=== PATIENT | male | born 1980 | race Caucasian/White ===

== ENCOUNTER 2021-04-04 11:21 | Observation (INO) | payer OTHER ==
[2021-04-04] MEDS ORDERED: Cyclobenzaprine 10 MG Tab PO ONE (12:59)
[2021-04-04] MEDS ORDERED: Ketorolac 30 MG/ML SDV IM ONE (12:59)
[2021-04-04 13:55] LABS: BLOOD UREA NITROGEN,BUN 12 mg/dL (7.0-18.0); CARBON DIOXIDE,CO2 25.1 mmol/L (21.0-32.0); CHLORIDE,CL 102 mmol/L (98-107); GLUCOSE RANDOM 102 mg/dL (74-106); POTASSIUM,K 3.7 mmol/L (3.5-5.1); SODIUM,NA 139 mmol/L (136-148)
[2021-04-04] MEDS ORDERED: Lactated Ringers 1,000 ML IV STA (14:29)
[2021-04-04] MEDS: VANCOmycin 1.25 GM/250 ML 1.25 GM in Premix Bag 1 BAG IV SCH (14:56)
[2021-04-04] MEDS ORDERED: cefTRIAXone 2 GM in Premix Bag 1 BAG IV ONE (16:08)
[2021-04-04] MEDS ORDERED: Ondansetron 4 MG/2 ML SDV IVPUSH PRN (17:02)
[2021-04-04] MEDS ORDERED: Cyclobenzaprine 10 MG Tab PO PRN (17:02)
[2021-04-04] MEDS ORDERED: Ondansetron 4 MG Tab.DIS PO PRN (17:02)
[2021-04-04] MEDS ORDERED: Ketorolac 30 MG/ML SDV IM PRN (17:02)
[2021-04-04] MEDS ORDERED: Acetaminophen 325 MG Tab PO PRN (17:02)
[2021-04-04] MEDS ORDERED: Enoxaparin 40 MG/0.4 ML Syringe SUBCUT SCH (17:15)
[2021-04-04] MEDS ORDERED: Lactated Ringers 1,000 ML IV SCH (17:15)
[2021-04-04] MEDS ORDERED: Docusate Sodium 100 MG Cap PO PRN (17:39)
[2021-04-04] MEDS: Ketorolac 30 MG/ML SDV IVPUSH PRN (18:46)
[2021-04-04] MEDS: Piperacillin/Tazobactam 3.375 GM in Sodium Chloride 0.9% 50 ML IV SCH ×2 (18:46→23:00)
[2021-04-04] MEDS: Pantoprazole 40 MG in Sodium Chloride 0.9% 10 ML IVPUSH SCH (21:51)
[2021-04-04] MEDS: oxyCODONE 5 MG Tab PO PRN (22:58)
[2021-04-05] MEDS: Ketorolac 30 MG/ML SDV IVPUSH PRN ×2 (01:03→08:53)
[2021-04-05] MEDS: oxyCODONE 5 MG Tab PO PRN (03:58)
[2021-04-05] MEDS: VANCOmycin 1.25 GM/250 ML 1.25 GM in Premix Bag 1 BAG IV SCH (03:59)
[2021-04-05] MEDS: Piperacillin/Tazobactam 3.375 GM in Sodium Chloride 0.9% 50 ML IV SCH (05:48)
[2021-04-05] MEDS ORDERED: Morphine 2 MG/ML SYRINGE IVPUSH PRN (06:00)
[2021-04-05] MEDS ORDERED: Cyclobenzaprine 10 MG Tab PO PRN (06:02)
[2021-04-05 08:05] LABS: BLOOD UREA NITROGEN,BUN 10 mg/dL (7.0-18.0); CARBON DIOXIDE,CO2 24.8 mmol/L (21.0-32.0); CHLORIDE,CL 103 mmol/L (98-107); GLUCOSE RANDOM 110 mg/dL (74-106); POTASSIUM,K 3.8 mmol/L (3.5-5.1); SODIUM,NA 139 mmol/L (136-148)
[2021-04-05] MEDS: Pantoprazole 40 MG in Sodium Chloride 0.9% 10 ML IVPUSH SCH (08:49)
[2021-04-05] MEDS ORDERED: Cyclobenzaprine 10 MG Tab PO SCH (14:00)
== END 2021-04-05 09:00 ==
LOC: MW.ED 11:21 → MW.MS 17:02
PROVIDERS: ADMIT Internal Medicine; ATTEND Internal Medicine
DX: M54.9 Dorsalgia, unspecified (principal); Z20.822 Contact with and (suspected) exposure to COVID-19
CPT/HCPCS: 36415; 80048; 80053; 82947; 83605; 85025; 85027; 85610; 85652; 86140; 87040; 87635; 96365; 96366; 96367; 96372; 96375; 96376; 99285; A9270; C9113; G0378; J0696; J1650; J1885; J2270; J2543; J3370; J7120; U0002

== ENCOUNTER 2021-04-21 10:19 | Emergency (ER) | payer OTHER ==
[2021-04-21] MEDS ORDERED: Metoclopramide 10 MG/2 ML SDV IVPUSH ONE (10:40)
[2021-04-21] MEDS ORDERED: Ketorolac 30 MG/ML SDV IVPUSH ONE (10:40)
[2021-04-21] MEDS ORDERED: diphenhydrAMINE 50 MG/ML SDV IVPUSH ONE (10:40)
[2021-04-21] MEDS ORDERED: Sodium Chloride 0.9% 1,000 ML IV ONE (10:40)
[2021-04-21 12:30] LABS: BLOOD UREA NITROGEN,BUN 14 mg/dL (7.0-18.0); CARBON DIOXIDE,CO2 23.8 mmol/L (21.0-32.0); CHLORIDE,CL 105 mmol/L (98-107); GLUCOSE RANDOM 116 mg/dL (74-106); POTASSIUM,K 4.3 mmol/L (3.5-5.1); SODIUM,NA 137 mmol/L (136-148)
[2021-04-21 13:14] LABS: CORONAVIRUS COVID-19 NAA POSITIVE (NEGATIVE); INFLUENZA A NAA NEGATIVE (NEGATIVE); INFLUENZA B NAA NEGATIVE (NEGATIVE)
== END 2021-04-21 13:41 | disposition home or self-care (01) ==
LOC: MW.ED 10:19
DX: U07.1 COVID-19 (principal)
CPT/HCPCS: 0240U; 36415; 70450; 80053; 83605; 85025; 86140; 96374; 96375; 99284; J1200; J1885; J2765; J7030